=== PATIENT | male | born 1950 | race African-American/Black ===

== ENCOUNTER 2022-10-17 14:58 | Inpatient (IN) | payer OTHER ==
[2022-10-17 19:04] VITALS: BMI 30.7
[2022-10-17] MEDS ORDERED: BENZONATATE 200 MG CAPSULE PO PRN (21:00)
[2022-10-17] MEDS ORDERED: ACETAMINOPHEN 325 MG TABLET (FP) PO PRN (21:00)
[2022-10-17] MEDS ORDERED: MAG HYDROX/AL HYDROX/SIMETH 30 ML UNIT-DOSE CUP PO PRN (21:00)
[2022-10-17] MEDS ORDERED: IBUPROFEN 600 MG TABLET (FP) PO PRN (21:00)
[2022-10-17] MEDS ORDERED: DICYCLOMINE HCL 10 MG CAPSULE PO PRN (21:00)
[2022-10-17] MEDS ORDERED: IBUPROFEN 400 MG TABLET (FP) PO PRN (21:00)
[2022-10-17] MEDS ORDERED: P-EPHED 60MG/TRIPROLIDI 2.5MG TABLET PO PRN (21:00)
[2022-10-17] MEDS ORDERED: BENZOCAINE/MENTHOL (CHLORASEPTIC ) LOZENGE MM PRN (21:00)
[2022-10-17] MEDS ORDERED: guaiFENesin 600 MG TABLET.ER (FP) PO PRN (21:00)
[2022-10-17] MEDS ORDERED: BISMUTH SUBSALICYLATE 524 MG/30 ML PO PRN (21:00)
[2022-10-17] MEDS ORDERED: POLYETHYLENE GLYCOL (HEALTHYLAX) 3350 17 GM PACKET PO PRN (21:00)
[2022-10-17] MEDS ORDERED: ONDANSETRON *ODT* 4 MG TABLET SL PRN (21:00)
[2022-10-17] MEDS ORDERED: LOPERAMIDE HCL 2 MG CAPSULE PO PRN (21:00)
[2022-10-17] MEDS ORDERED: MAGNESIUM HYDROX 2400MG/30ML ORAL SUSPENSION 30 ML CUP PO PRN (21:00)
[2022-10-17] MEDS ORDERED: diazePAM 5 MG TABLET PO PRN (21:13)
[2022-10-17] MEDS: MELATONIN 5 MG TABLETS PO PRN (22:09)
[2022-10-17] MEDS: THIAMINE HCL 100 MG TABLET (FP) PO SCH (22:09)
[2022-10-18] MEDS ORDERED: diazePAM 5 MG TABLET PO SCH (11:00)
[2022-10-18] MEDS: PRENATAL VITAMINS W/ FOLIC ACID TABLET (FP) PO SCH (11:20)
[2022-10-18] MEDS: LORazepam 2 MG TABLET PO SCH ×2 (11:20→22:17)
[2022-10-18] MEDS: METOPROLOL TARTRATE 25 MG TABLET (FP) PO SCH (11:20)
[2022-10-18 11:22] LABS: HEMATOCRIT 35.1 % (35.4-49); MCH 31.3 pg (25.7-33.7); MCHC 34.1 g/dl (32.0-35.9); MEAN CELL VOLUME 91.7 fl (80-96); MEAN PLT VOLUME 8.1 fl (7.5-11.1); PLATELET COUNT 132 10^3/uL (134-434); RBC 3.83 M/mm3 (4.00-5.60); RDW 15.2 % (11.9-15.9); WHITE BLOOD COUNT 6.1 K/mm3 (4.0-10.0)
[2022-10-18 11:49] LABS: ALBUMIN 3.1 g/dl (3.4-5.0); CALCIUM 9.3 mg/dL (8.5-10.1); CREATININE 0.9 mg/dL (0.55-1.3)
[2022-10-18 11:51] LABS: TOT PROT 6.6 g/dl (6.4-8.2)
[2022-10-18 11:56] LABS: BILIRUBIN,TOTAL 1.1 mg/dL (0.2-1)
[2022-10-18] MEDS ORDERED: PREGABALIN 25 MG CAPSULE PO SCH (13:45)
[2022-10-18] MEDS: RIVAROXABAN 20 MG TABLET PO SCH (17:42)
[2022-10-18] MEDS: THIAMINE HCL 100 MG TABLET (FP) PO SCH (22:17)
[2022-10-18] MEDS: MELATONIN 5 MG TABLETS PO PRN (22:17)
[2022-10-19] MEDS: LORazepam 2 MG TABLET PO SCH ×4 (05:47→22:02)
[2022-10-19] MEDS: PRENATAL VITAMINS W/ FOLIC ACID TABLET (FP) PO SCH (10:28)
[2022-10-19] MEDS: METOPROLOL TARTRATE 25 MG TABLET (FP) PO SCH (10:29)
[2022-10-19] MEDS: RIVAROXABAN 20 MG TABLET PO SCH (17:46)
[2022-10-19] MEDS: MELATONIN 5 MG TABLETS PO PRN (22:02)
[2022-10-19] MEDS: THIAMINE HCL 100 MG TABLET (FP) PO SCH (22:02)
[2022-10-20] MEDS: LORazepam 2 MG TABLET PO SCH (05:41)
[2022-10-20] MEDS: LORazepam 1 MG TABLET PO SCH ×4 (05:41→22:01)
[2022-10-20] MEDS ORDERED: diazePAM 5 MG TABLET PO SCH (06:00)
[2022-10-20] MEDS: PRENATAL VITAMINS W/ FOLIC ACID TABLET (FP) PO SCH (10:10)
[2022-10-20] MEDS: METOPROLOL TARTRATE 25 MG TABLET (FP) PO SCH (10:10)
[2022-10-20 16:46] LABS: URINE APPEARANCE CLEAR; URINE BILIRUBIN NEGATIVE (NEGATIVE); URINE COLOR YELLOW; URINE GLUCOSE (UA) NEGATIVE (NEGATIVE); URINE KETONE NEGATIVE (NEGATIVE); URINE LEUK ESTERASE NEGATIVE (NEGATIVE); URINE NITRITE NEGATIVE (NEGATIVE); URINE PROTEIN NEGATIVE (NEGATIVE); URINE UROBILINOGEN 0.2 mg/dL (0.2-1.0)
[2022-10-20] MEDS: RIVAROXABAN 20 MG TABLET PO SCH (17:51)
[2022-10-20] MEDS: THIAMINE HCL 100 MG TABLET (FP) PO SCH (22:00)
[2022-10-20] MEDS: busPIRone HCL 5 MG TABLET PO SCH (22:00)
[2022-10-21] MEDS: LORazepam 0.5 MG TABLET PO SCH ×4 (05:40→22:35)
[2022-10-21] MEDS ORDERED: diazePAM 5 MG TABLET PO SCH (06:00)
[2022-10-21] MEDS: METOPROLOL TARTRATE 25 MG TABLET (FP) PO SCH (10:29)
[2022-10-21] MEDS: PRENATAL VITAMINS W/ FOLIC ACID TABLET (FP) PO SCH (10:30)
[2022-10-21] MEDS: busPIRone HCL 5 MG TABLET PO SCH ×2 (10:30→22:34)
[2022-10-21] MEDS: RIVAROXABAN 20 MG TABLET PO SCH (19:08)
[2022-10-21] MEDS: QUEtiapine FUMARATE 50 MG TABLET PO PRN (22:34)
[2022-10-21] MEDS: THIAMINE HCL 100 MG TABLET (FP) PO SCH (22:34)
[2022-10-22] MEDS ORDERED: LORazepam 0.5 MG TABLET PO ONE (05:00)
[2022-10-22] MEDS ORDERED: diazePAM 5 MG TABLET PO ONE (06:00)
[2022-10-22] MEDS: PRENATAL VITAMINS W/ FOLIC ACID TABLET (FP) PO SCH (10:09)
[2022-10-22] MEDS: METOPROLOL TARTRATE 25 MG TABLET (FP) PO SCH (10:09)
[2022-10-22] MEDS: busPIRone HCL 5 MG TABLET PO SCH ×2 (10:09→22:26)
[2022-10-22] MEDS: RIVAROXABAN 20 MG TABLET PO SCH (17:10)
[2022-10-22] MEDS: THIAMINE HCL 100 MG TABLET (FP) PO SCH (22:25)
[2022-10-22] MEDS: QUEtiapine FUMARATE 50 MG TABLET PO PRN (22:26)
[2022-10-23 09:29] VITALS: RESP 18
[2022-10-23] MEDS ORDERED: busPIRone HCL 10 MG TABLET (FP) PO SCH (09:31)
[2022-10-23] MEDS: METOPROLOL TARTRATE 25 MG TABLET (FP) PO SCH (10:13)
[2022-10-23] MEDS: PRENATAL VITAMINS W/ FOLIC ACID TABLET (FP) PO SCH (10:13)
[2022-10-23 14:19] VITALS: BP 155/90; PULSE 85; TEMP 98
== END 2022-10-23 04:40 | disposition other institution (70) | DRG 897 ==
LOC: YASAS 14:58 → Y6N 21:38
PROVIDERS: ADMIT Allergy & Immunology; ATTEND Surgery
PROC: HZ2ZZZZ Detoxification Services for Substance Abuse Treatment (ICD-10-PCS; principal; 2022-10-17)
DX: F10.230 Alcohol dependence with withdrawal, uncomplicated (principal); F19.282 Other psychoactive substance dependence with psychoactive substance-induced sleep disorder; I82.409 Acute embolism and thrombosis of unspecified deep veins of unspecified lower extremity; F12.20 Cannabis dependence, uncomplicated; F41.9 Anxiety disorder, unspecified; F32.A Depression, unspecified; I10 Essential (primary) hypertension; Z79.01 Long term (current) use of anticoagulants; E78.5 Hyperlipidemia, unspecified; Z96.653 Presence of artificial knee joint, bilateral; Z96.643 Presence of artificial hip joint, bilateral; Z87.891 Personal history of nicotine dependence; Z88.8 Allergy status to other drugs, medicaments and biological substances
CPT/HCPCS: 36415; 80053; 81003; 85027; 86780; 87811; C9803-CS; Q0162; U0003; U0005